=== PATIENT | female | born 1960 | race Caucasian/White ===

== ENCOUNTER 2019-03-04 08:51 | Day surgery (SDC) ==
[2019-03-04] MEDS ORDERED: KEFZOL 1 GM/D5W 1 GM/50 ML IVPB ONE (09:50)
[2019-03-04] MEDS ORDERED: LR 1,000 ML ONE ×4 (09:50→17:10)
[2019-03-04] MEDS ORDERED: REGLAN ONE (09:50)
[2019-03-04] MEDS ORDERED: PEPCID ONE (09:50)
[2019-03-04] MEDS ORDERED: QUELICIN (DOSE) ONE ×2 (10:15→10:34)
[2019-03-04] MEDS ORDERED: VERSED ONE (10:16)
[2019-03-04] MEDS ORDERED: DIPRIVAN 1% ONE ×2 (10:17→10:33)
[2019-03-04] MEDS ORDERED: ROBINUL ONE ×2 (10:17→11:59)
[2019-03-04] MEDS ORDERED: FENTANYL ONE ×2 (10:17→11:55)
[2019-03-04] MEDS ORDERED: XYLOCAINE-MPF 2% ONE ×2 (10:17→10:34)
[2019-03-04] MEDS ORDERED: ZEMURON ONE (10:34)
[2019-03-04] MEDS ORDERED: SODIUM CHLORIDE 0.9% ONE (11:11)
[2019-03-04] MEDS ORDERED: MARCAINE 0.25% PF/EPI 1:200,000 ONE (11:11)
[2019-03-04] MEDS ORDERED: ZOFRAN ONE ×2 (11:47→17:22)
[2019-03-04] MEDS ORDERED: DECADRON ONE (11:47)
[2019-03-04] MEDS ORDERED: NEOSTIGMINE ONE (11:59)
--- NOTE | 2019-03-04 12:21 | Diag Imaging Result Doc PS360 ---
EXAM: OPERATIVE CHOLANGIOGRAM HISTORY: GALLBLADDER DX TECHNIQUE: Intraoperative cholangiogram, two views COMPARISON: None. FINDINGS: Contrast fills the common bile duct. It has emptied into the duodenum. No stone or stricture. IMPRESSION: Normal intraoperative cholangiogram. Electronically signed by Josue Friedman 03/04/2019 12:18 PM
[2019-03-04] MEDS: DILAUDID ONE ×6 (12:42→13:04)
[2019-03-04] MEDS ORDERED: NORCO-10 ONE (13:00)
[2019-03-04] MEDS: NARCAN ONE ×5 (13:54→15:47)
[2019-03-04] MEDS ORDERED: D50W SYRINGE IV PRN (18:30)
[2019-03-04] MEDS: ZOFRAN IV PRN (19:17)
--- NOTE | 2019-03-04 20:12 | OPERATIVE NOTE ---
PROCEDURE DATE: 03/04/2019 PREOPERATIVE DIAGNOSIS: Chronic cholecystitis. POSTOPERATIVE DIAGNOSIS: Chronic cholecystitis. PRINCIPAL PROCEDURE: Laparoscopic cholecystectomy with intraoperative cholangiogram. SURGEON: Ching Estrella MD. [employer] F[employer]ER [employer] CEO: Dr. Jj Azevedo. ANESTHESIA: General in addition to local anesthetic. ESTIMATED BLOOD LOSS: 25 mL. DRAINS: None. INDICATION: Faye Martinez is a 58-year-old white female who has been experiencing upper abdominal discomfort and nausea. An ultrasound showed no gallstones, but a HIDA scans been abnormal and it was felt that she could have chronic cholecystitis as a cause for her symptoms and cholecystectomy was recommended. FINDINGS: The liver appeared to be healthy. The gallbladder was chronically inflamed. It did not have stones in it. We did do an intraoperative cholangiogram, which showed free flow of the dye into the duodenum without evidence of extrahepatic stones or obstruction. There was no abnormal dilatation of the extrahepatic bile ducts. She did have some light adhesions lower midline from previous colon surgery. These were adhesions from the omentum to the anterior abdominal wall. There was no bowel within these adhesions. We felt we did the operation safely. No other intra-abdominal pathology was noted. DESCRIPTION OF PROCEDURE: The patient was brought to the operating room, placed supine, received general anesthesia, and was intubated. The abdomen was prepped and draped within a sterile field. We made a small incision below the umbilicus with a 15 blade scalpel. Veress needle was then introduced through this incision into the abdomen. Pneumoperitoneum was established. Veress needle was removed. I placed an 11 mm trocar through this incision into the abdomen. The camera was placed through this port, and the abdomen was explored for injury, there was none. Three other trocars were placed along the right costal margin under direct vision of the camera. I placed an 11 mm trocar just to the right of the midline and two 5 mm trocars in our midclavicular and anterior axillary lines. Through our most lateral port, the gallbladder was grasped and retracted superiorly along with the right lobe of the liver. Another grasper was used to grab the body of the gallbladder and the triangle of Calot was bluntly dissected. We identified the cystic duct along its length. We also identified the cystic artery. A clip was placed distally on the cystic artery and 2 proximally. It was divided using hook scissors. A clip was placed at the cystic duct gallbladder junction. I made a small incision in the cystic duct using hook scissors and a taut intraoperative cholangiogram catheter was used to perform the cholangiogram with the findings above. Once the cholangiogram was completed, 2 clips were placed proximally on the cystic duct and then I divided the cystic duct between clips using hook scissors. The spatula cautery was used to remove the gallbladder from the liver bed. We used an endobag to remove the gallbladder through our umbilical incision. I placed the trocar back through this incision and the area of operation was thoroughly inspected, irrigated, and the irrigation was removed with suction. There was no evidence of ongoing bleeding or bile leak. No drains were left. All trocars removed under direct vision of the camera. The pneumoperitoneum was allowed to dissipate. I used several 2-0 Vicryl [id number] stitches to reapproximate the fascia below the umbilicus and all skin was closed with 4-0 Monocryl subcuticular stitches. Steri-Strips were applied. She tolerated the procedure well with plans for her to go the recovery room and then be discharged home later today under the care of her family with followup in our outpatient office in [address] Azevedo was present throughout the case. He retracted the gallbladder and the right lobe of the liver so that I could safely dissect out the triangle of Calot. He is also helpful with exposure for closure of the fascia at the umbilicus and help with closing the skin trocar sites. cc: Ching Estrella MD
[2019-03-04] MEDS ORDERED: HYDROCHLOROTHIAZIDE PO SCH (21:00)
[2019-03-04] MEDS ORDERED: HUMALOG MIX 75/25 SUBQ SCH (21:00)
[2019-03-04] MEDS ORDERED: [UNRECOGNIZED DRUG - OTHER] PO SCH (21:00)
[2019-03-04] MEDS ORDERED: MICARDIS PO SCH (21:00)
[2019-03-04] MEDS ORDERED: NON-FORMULARY MED (Omeprazole 40 MG) PO SCH (21:00)
[2019-03-04] MEDS ORDERED: TOPROL XL PO SCH (21:00)
[2019-03-04] MEDS ORDERED: PRISTIQ ER PO SCH ×2 (21:00)
[2019-03-04] MEDS ORDERED: INSULIN PEN NEEDLES ONE (22:53)
[2019-03-05] MEDS: ZOFRAN IV PRN (01:31)
[2019-03-05] MEDS: PERCOCET-10 PO PRN ×2 (01:31→10:11)
[2019-03-05] MEDS: PERIDEX MT SCH ×2 (01:42→10:12)
[2019-03-05] MEDS: HUMULIN R SUBQ SCH ×3 (01:42→12:52)
[2019-03-05] MEDS ORDERED: HUMALOG MIX 75/25 SUBQ SCH ×3 (07:00→16:00)
[2019-03-05 12:46] VITALS: BP 103/49
[2019-03-05] MEDS ORDERED: INSULIN PEN NEEDLES ONE (14:04)
[2019-03-05] MEDS ORDERED: TOPROL XL PO SCH (21:00)
[2019-03-05] MEDS ORDERED: PRILOSEC PO SCH (21:00)
--- NOTE | 2019-03-06 15:44 | DISCHARGE SUMMARY ---
ADMISSION DATE: 03/04/2019 DISCHARGE DATE: 03/05/2019 ADMITTING DIAGNOSIS: Chronic cholecystitis. DISCHARGE DIAGNOSIS: Chronic cholecystitis. PRINCIPAL PROCEDURE: Laparoscopic cholecystectomy with intraoperative cholangiogram. DISCHARGE DIET: Regular. DISCHARGE DISPOSITION: She will return to our outpatient offices in 7 to 10 days for followup. DISCHARGE DISABILITY: Full. DISCHARGE MEDICATIONS: She is to return to her home medications. HOSPITAL COURSE: Ms. Faye Martinez is a 58-year-old white female patient Dr. Edwin Joaquin who has been experiencing nausea and upper abdominal discomfort. She has an abnormal HIDA scan and it was felt that her gallbladder could be symptomatic and cholecystectomy was recommended. She was admitted on the day of surgery and underwent a laparoscopic cholecystectomy with intraoperative cholangiogram. We felt the surgery went well. She went to the recovery room, received some IV pain medicine and had to have some Narcan. She was slow to wake up from her general anesthesia. It was late in the day and we felt we should admit her overnight. On postop day 1, she was good and awake. Her nausea had resolved. Her trocar sites were intact. Her abdomen was soft. She was tolerating liquids and it was felt safe to discharge her home under the care of her with followup in our outpatient offices in 7 to 10 days. cc: MD Ariane Barksdale MD
== END 2019-03-05 14:42 | disposition home or self-care (01) ==
LOC: 4N 08:51 → OR 08:51
PROVIDERS: ATTEND Surgery
CPT/HCPCS: 74300; 82948; 88304; 94799; A9270; C1751; J0330; J0690; J1100; J1170; J2250; J2310; J2405; J3010; J7120; Q9966; Q9967; XXXXX